=== PATIENT | female | born 1995 | race Caucasian/White ===

== ENCOUNTER 2023-05-12 21:28 | Emergency (ER) | payer MEDICAID ==
[~2023-05-12] VITALS: Ht 157.5 cm; Wt 59.0 kg
[2023-05-12 22:19] VITALS: BP_SYST 116; PULSE 95; RESP 19; TEMP 98.4; O2SAT 100
[2023-05-13 02:00] VITALS: BP_SYST 117; PULSE 90; RESP 16; TEMP 98; O2SAT 99
== END 2023-05-13 02:36 | disposition home or self-care (01) ==
LOC: SED 21:28
DX: S82.52XA Displaced fracture of medial malleolus of left tibia, initial encounter for closed fracture (principal); Z79.899 Other long term (current) drug therapy; W10.9XXA Fall (on) (from) unspecified stairs and steps, initial encounter; Y93.89 Activity, other specified; Y92.89 Other specified places as the place of occurrence of the external cause; Y99.8 Other external cause status
CPT/HCPCS: 99283